=== PATIENT | male | born 1995 | race Caucasian/White ===

== ENCOUNTER 2019-04-04 03:53 | Emergency (ER) | payer OTHER, MEDICAID ==
[~2019-04-04] VITALS: Ht 177.8 cm; Wt 68.6 kg
[2019-04-04 04:01] VITALS: BP 128/61
[2019-04-04] MEDS: LORazepam 1 MG tablet PO ONE (04:16)
== END 2019-04-04 04:28 | disposition home or self-care (01) ==
LOC: ER 03:54
DX: F22 Delusional disorders (principal); F15.90 Other stimulant use, unspecified, uncomplicated; F41.9 Anxiety disorder, unspecified; F32.9 Major depressive disorder, single episode, unspecified; Z88.8 Allergy status to other drugs, medicaments and biological substances
CPT/HCPCS: 99284